=== PATIENT | female | born 2000 | race Hispanic/Latino ===

== ENCOUNTER → 2025-08-30 10:56 | Outpatient (CLI) | payer OTHER, SELFPAY ==
--- NOTE | 2025-08-30 10:59 | DI.US.S_ITS ---
PROCEDURE: US ABDOMEN LIMITED INDICATIONS: elevated lft's TECHNIQUE: Real-time focused scanning was performed of the abdomen, with image documentation. COMPARISON: None. FINDINGS: Liver measures 21 cm. Significantly increased echogenicity liver parenchyma. Unremarkable ultrasound appearance of the gallbladder. Biliary system and pancreas were obscured by bowel gas and body habitus. IMPRESSION: Significantly increased hepatic echogenicity, nonspecific, usually due to steatosis. Hepatomegaly. Gallbladder is unremarkable. Biliary system not well seen. Dictated by: Corey Carvajal M.D. on 08/30/2025 at 12:33 Approved by: Corey Carvajal M.D. on 08/30/2025 at 12:34
== END ==
PROVIDERS: Referring Provider Family Medicine; Visit Provider Family Medicine
DX: R79.89 Other specified abnormal findings of blood chemistry (principal); R16.0 Hepatomegaly, not elsewhere classified
CPT/HCPCS: 76705